=== PATIENT | female | born 1970 | race Two or more races ===

== ENCOUNTER 2025-05-29 17:52 | Emergency (ER) | payer OTHER ==
[~2025-05-29] VITALS: Ht 167.6 cm; Wt 67.0 kg
[2025-05-29 17:57] VITALS: BP 156/80; PULSE 74; RESP 20; TEMP 97.5; O2SAT 98
--- NOTE | 2025-05-29 19:17 | DVH ---
CLINICAL INDICATION: Fall injury pain and swelling TECHNIQUE: 3 radiographic views of the right elbow were obtained. Comparison: None FINDINGS/IMPRESSION: Bony alignment is normal. No fractures or dislocations. No findings to suggest joint effusion
[2025-05-29] MEDS ORDERED: METH-1181 PO (20:50)
[2025-05-29] MEDS ORDERED: IBUP-1456 PO (20:50)
--- NOTE | 2025-05-29 20:50 | ED.PDOC ---
Back pain HPI HPI Comments PT REPORTS MECHANICAL FALL INJURY WHILE WORKING, FELL TO RIGHT SIDE, NOTES RIGHT ELBOW PAIN. NO DEFORMITY OR SWELLING NOTED. PT REPORTS HITTING HEAD, DENIES LOC DENIES NUMBNESS OR WEAKNESS OR ANY OTHER KNOWN INJURY. Chief Complaint: Fall Injury Time Seen by MD: 18:11 Reviewed Notes: Nurses Notes, Medications, Allergies Allergies: Coded Allergies: NO KNOWN ALLERGIES (Unverified , 05/29/25) Home Meds Active Scripts Methocarbamol (Methocarbamol) 500 Mg Tab, 500 MG PO HS PRN for 7 Days, #7 TAB Prov:BRANDI BOO LABORATORY SCIENTIST 05/29/25 Ibuprofen (Ibuprofen) 800 Mg Tab, 800 MG PO Q8HP PRN for 5 Days, #15 TAB Prov:EMABRANDI LABORATORY SCIENTIST 05/29/25 Information Source: Patient Mode of Arrival: Ambulatory Past Medical History PAST MEDICAL HISTORY: Denies Surgical History: Denies all surgeries CERTIFIED MEDICAL ASST History: No Pertinent CERTIFIED MEDICAL ASST History Family History Family History: Unknown Social History Smoker: Non-Smoker Alcohol: Denies ETOH Use Drugs: Denies Drug Use All Other Systems: Reviewed and Negative (SEE HPI) Physical Exam General Appearance: No Apparent Distress, Normal HEENT: Pharynx Normal Neck: Full Range of Motion, Non-Tender Respiratory: Lungs Clear, No Respiratory Distress, Normal Breath Sounds Cardiovascular: No Edema, No JVD, No Murmur, No Gallop, Normal Peripheral Pulses, Regular Rate/Rhythm Breast Exam: Deferred Gastrointestinal: No Organomegaly, Non Tender, No Pulsatile Mass, Normal Bowel Sounds, Soft Genitalia: Deferred Pelvic: Deferred Rectal: Deferred Extremities: Normal capillary refill, Normal range of motion, Non-tender, No pedal edema Musculoskeletal : Location: Right Extremity Location: Elbow (MODERATE TENDERNESS ON PALPATION NOTED ECCHYMOSIS TRACE EDEMA STRENGTH SENSORY MOTION INTACT) Apperance: Normal Neurologic: Alert, No Motor Deficits, Normal Affect, Normal Mood, No Sensory Deficits Cerebellar Function: Normal Reflexes: NOT DONE Skin: Dry, Normal Color, Warm Lymphatic: No Adenopathy Was a procedure done? Was a procedure done?: No Back Pain Differential Dx Differential Diagnosis: Fracture, Musculoskeletal Pain X-Ray, Labs, Meds, VS Vital Signs Date Time Temp Pulse Resp B/P (MAP) Pulse Ox O2 Delivery O2 Flow Rate FiO2 05/29/25 17:57 97.5 74 20 156/80 98 97.5 05/29/25 17:57 Room Air X-Ray, Labs, Meds, VS Comment Elbow x-ray shows no acute fractures dislocations or osseous lesions. Patient placed in arm sling advised on rice script trial of NSAID advised take medicat ions as prescribed side effects discussed advised to follow up with employee health ER return precautions given patient indicates understanding agrees with discharge plan of care. Images Reviewed?: Images reviewed and evaluated by me Time of 1ST Reevaluation: 18:14 Reevaluation 1ST: Unchanged Time of 2ND Reevaluation: 20:44 Reevaluation 2ND: Improved Patient Education/Counseling: Diagnosis, Treatment, Need For Follow Up Family Education/Counseling: No Family Present SEPSIS Sepsis Screen Date sepsis recognized/suspect: May 29, 2025 Time Sepsis recognized/suspect: 1756 Recent Procedure: No On Antibiotic Therapy: No Respiratory Rate >20: No Heart Rate >90: No Temp<36 C (96.8 F) or >38.3 C: No SBP <90 or MAP <65 mmHG: No New Acute Mental Status Change: No Is the patient on CPAP, BIPAP,: No Physician Orders R Elbow 3 View Xray (05/29/25 18:16) Apply Sling (05/29/25 20:47) Vital Signs Date Time Temp Pulse Resp B/P (MAP) Pulse Ox O2 Delivery O2 Flow Rate FiO2 05/29/25 17:57 97.5 74 20 156/80 98 97.5 05/29/25 17:57 Room Air Departure 1 Departure Time of Disposition: 20:48 Impression: Primary Impression: Contusion of elbow, right Qualified Codes: S50.01XA - Contusion of right elbow, initial encounter Disposition: HOME / SELF CARE / HOMELESS Condition: Stable e-Prescriptions Methocarbamol (Methocarbamol) 500 Mg Tab 500 MG PO HS PRN for 7 Days, #7 TAB Prov: BRANDI BOO 05/29/25 Ibuprofen (Ibuprofen) 800 Mg Tab 800 MG PO Q8HP PRN for 5 Days, #15 TAB Prov: BRANDI BOO 05/29/25 Discharged With: Self Critical Care Note Critical Care Time?: No Stability Stability form required: No BRANDI BOO May 29, 2025 20:50
== END 2025-05-29 21:11 | disposition home or self-care (01) ==
LOC: ER 17:52
DX: S50.01XA Contusion of right elbow, initial encounter (principal); W19.XXXA Unspecified fall, initial encounter; Y93.89 Activity, other specified; Y92.89 Other specified places as the place of occurrence of the external cause; Y99.8 Other external cause status
CPT/HCPCS: 73080